=== PATIENT | male | born 1970 | race Caucasian/White ===

== ENCOUNTER 2017-03-08 21:06 | Emergency (ER) | payer OTHER ==
--- NOTE | ~2017-03-08 | EKG ---
PATIENT: LARON EDMONDS UNIT #: [id number] Ventricular Rate: 84 BPM Atrial Rate: 84 BPM P-R Interval: 172 ms QRS Duration: 90 ms Q-T Interval: 350 ms QTC Calculation(Bezet): 413 ms P [place]: 74 degrees Calculated R [place]: 43 degrees Calculated T [place]: 62 degrees Diagnosis Line: Normal sinus rhythm Diagnosis Line: Possible Left atrial enlargement Diagnosis Line: Borderline ECG Diagnosis Line: When compared with ECG of 27-MAY-2014 09:18, Diagnosis Line: Sinus rhythm has replaced Atrial fibrillation Diagnosis Line: Confirmed by ELVIE TREVIZO MD ([id number]) on 03/09/2017 Diagnosis Line: 8:31:03 PM INTERPRETING MD: SANTHOSH CARBALLO
--- NOTE | ~2017-03-08 | CR72 ---
[facility] A Service of [facility] RADIOLOGY TEXT RESULTS PATIENT: LARON EDMONDS LOCATION: [facility] : 71 UNIT #: [id number] AGE: [address]: Jose Alexis MD SEX: M ORDER DR: [id number] [place], [place] [address] [id number] MR#: [id number] Acc #: [id number] NAME: LARON EDMONDS : 1970 SEX: M STUDY DATE/TIME: 03/08/2017 22:34 UNIT: [facility] ROOM: STUDY DESCRIPTION: CR Chest Single View Portable Attending Physician: Jose Alexis M.D. Ordering Physician: Jose lAexis M.D. Primary Care Physician: [facility] MEDICAL IMAGING REPORT This report is preliminary unless electronic signature is present EXAM AP portable chest DATE: 03/08/2017 at 22:34 HISTORY Chest pain and cough and shortness of breath for one week. Left side chest pain. COMPARISON AP portable chest 05/27/2014 FINDINGS No acute airspace disease. Benign calcified granulomatous changes bilaterally. Normal heart size. No pleural effusion or pneumothorax. Mild degenerative endplate spurring in the thoracic spine. IMPRESSION No acute cardiopulmonary findings. Dictated by... Yenny Morgan M.D. THIS IS AN ELECTRONICALLY VERIFIED REPORT Yenny Morgan M.D. at 03/09/2017 10:03 AM HEATH/desiree TD: 03/09/2017 00:42 JOB #: [id number] [facility] A Service of [facility] RADIOLOGY TEXT RESULTS PATIENT: LARON EDMONDS LOCATION: [facility] : 72 UNIT #: [id number] AGE: [address]: Jose Alexis MD SEX: M ORDER DR: MEDICAL IMAGING REPORT Page 1 of 1 COPY
[~2017-03-08 21:06] MED LIST: AMIODARONE PO; ELIQUIS PO; NO MEDICATIONS; VOLTAREN75 MG PO; ZESTORETIC PO
[2017-03-08 22:23] LABS: POC - CKMB <1.0 ng/mL (0.0-7.9); POC - TROPONIN <0.05 ng/mL (<=0.05)
[2017-03-08 23:13] LABS: BASOPHIL# 0.1 X10e3 (0-0.3); BASOPHIL% 0.7 % (0-2.5); EOSINOPHIL# 0.6 X10e3 (0-0.7); HEMATOCRIT 48.1 % (38.0-50.0); HEMOGLOBIN 16.2 gm/dL (13.0-16.0); LYMPHOCYTE# 3.3 X10e3 (1.0-3.5); LYMPHOCYTE% 37.9 % (17.0-45.0); MEAN CELL VOLUME 92.7 FL (83-96); MEAN CORPUSCULAR HEMOGLOBIN 31.1 PG (28-34); MEAN CORPUSCULAR HGB CONC 33.6 g/dL (30-36); MEAN PLATELET VOLUME 10.1 FL (6.5-11.5); MONOCYTE# 0.6 X10e3 (0-1.0); MONOCYTE% 7.1 % (3.0-12.0); NEUTROPHIL# 4.1 X10e3 (1.5-7.1); NEUTROPHIL% 47.3 % (40-75); PLATELET COUNT 169 X10e3 (140-420); RED BLOOD COUNT 5.19 X10e (3.90-5.60); RED CELL DISTRIBUTION WIDTH 12.9 % (11.0-15.5); WHITE BLOOD COUNT 8.7 X10e3 (4.0-10.5)
[2017-03-08 23:14] LABS: DIFF IND NO
[2017-03-08 23:28] LABS: PARTIAL THROMBOPLASTIN TIME 26.5 SECONDS (23.5-31.3); PROTHROMBIN TIME (PATIENT) 10.4 SECONDS (10.0-11.7)
[2017-03-08 23:36] LABS: ALBUMIN SERUM 4.3 g/dL (3.5-5.0); BILIRUBIN, DIRECT 0.1 mg/dL (0.0-0.2); BILIRUBIN,INDIRECT 0.4 mg/dL (0.0-0.9); BILIRUBIN,TOTAL 0.5 mg/dL (0.2-2.0); BUN/CREATININE RATIO 11.11; CALCIUM SERUM 8.9 mg/dL (8.4-10.2); CREATININE SERUM 0.9 mg/dL (0.6-1.4); GLOM FILT RATE Estimated 102.8 mL/min (>60); POTASSIUM 3.5 mmol/L (3.5-5.1); PROTEIN TOTAL SERUM 7.2 g/dL (6.0-8.3)
[2017-03-09 00:35] LABS: POC - CKMB <1.0 ng/mL (0.0-7.9); POC - TROPONIN <0.05 ng/mL (<=0.05)
== END 2017-03-09 00:40 | disposition home or self-care (01) ==
LOC: CED 21:06
PROVIDERS: Emergency Medicine
DX: R07.89 Other chest pain (principal); M54.5 Low back pain; Z88.0 Allergy status to penicillin; F17.210 Nicotine dependence, cigarettes, uncomplicated
CPT/HCPCS: 36415; 71010; 80048; 80076; 82553; 84484; 85025; 85379; 85610; 85730; 93005; 96374; 99285; J2930

== ENCOUNTER → 2017-05-25 | Outpatient (CLI) | payer OTHER ==
--- NOTE | ~2017-05-25 | CT57 ---
[facility] A Service of [facility] RADIOLOGY TEXT RESULTS PATIENT: LARON EDMONDS LOCATION: [facility] : 72 UNIT #: [id number] AGE: [address]: Kanu Waldrop MD SEX: M ORDER DR: [id number] [facility] [place], [place] [address] [id number] MR#: [id number] Acc #: [id number] NAME: LARON EDMONDS : 1970 SEX: M STUDY DATE/TIME: 05/25/2017 11:26 UNIT: [facility] ROOM: STUDY DESCRIPTION: CT Chest Wo Cont Attending Physician: Kanu Waldrop M.D. Referring Physician: Kanu Waldrop M.D. Ordering Physician: Kanu Waldrop M.D. Primary Care Physician: [facility] MEDICAL IMAGING REPORT This report is preliminary unless electronic signature is present EXAM CT chest without contrast INDICATIONS Follow up pulmonary nodule. PROCEDURE Unenhanced CT chest. This CT exam was performed with one or more of the following radiation dose reduction techniques: automatic exposure control, adjustment of mA and/or kV according to patient size, and iterative reconstruction. COMPARISON 07/15/2016 FINDINGS There is a 3 mm nodule in the anterior right middle lobe that is unchanged from the prior. Otherwise the lungs are clear. No pleural fluid or pneumothorax. No adenopathy. No acute findings in included upper abdomen. No aggressive appearing bone lesion. IMPRESSION A 3 mm somewhat linear nodule in the right middle lobe is unchanged from 07/15/16 in keeping with benign findings. No new nodules. Dictated by... Weston Shaikh M.D. THIS IS AN ELECTRONICALLY VERIFIED REPORT Weston Shaikh M.D. at 05/26/2017 12:13 PM [facility] A Service [facility] RADIOLOGY TEXT RESULTS PATIENT: LARON EDMONDS LOCATION: [facility] : 72 UNIT #: [id number] AGE: [address]: Kanu Waldrop MD SEX: M ORDER DR: Sree TD: 05/25/2017 21:26 JOB #: [id number] MEDICAL IMAGING REPORT Page 1 of 1 COPY
== END | disposition home or self-care (01) ==
LOC: CECH 09:30
DX: R91.8 Other nonspecific abnormal finding of lung field (principal); I42.9 Cardiomyopathy, unspecified; R07.9 Chest pain, unspecified; R06.02 Shortness of breath; R91.1 Solitary pulmonary nodule; I51.89 Other ill-defined heart diseases; Z72.0 Tobacco use
CPT/HCPCS: 71250; 93351